=== PATIENT | male | born 1990 | race Caucasian/White ===

== ENCOUNTER 2024-08-27 11:59 | Inpatient (IN) | payer OTHER ==
[2024-08-27 12:34] VITALS: BMI 35.6
[2024-08-27] MEDS ORDERED: ACETAMINOPHEN 325 MG TABLET (FP) PO PRN (12:47)
[2024-08-27] MEDS ORDERED: MAG HYDROX/AL HYDROX/SIMETH 30 ML UNIT-DOSE CUP PO PRN (12:47)
[2024-08-27] MEDS ORDERED: POLYETHYLENE GLYCOL (HEALTHYLAX) 3350 17 GM PACKET PO PRN (12:47)
[2024-08-27] MEDS ORDERED: LOPERAMIDE HCL 2 MG CAPSULE PO PRN (12:47)
[2024-08-27] MEDS ORDERED: MAGNESIUM HYDROX 2400MG/30ML ORAL SUSPENSION 30 ML CUP PO PRN (12:47)
[2024-08-27] MEDS ORDERED: IBUPROFEN 400 MG TABLET (FP) PO PRN (12:47)
[2024-08-27] MEDS ORDERED: BENZONATATE 200 MG CAPSULE PO PRN (12:47)
[2024-08-27] MEDS ORDERED: NICOTINE POLACRILEX 2 MG LOZENGE BC PRN (12:47)
[2024-08-27] MEDS ORDERED: BENZOCAINE/MENTHOL (CHLORASEPTIC ) LOZENGE MM PRN (12:47)
[2024-08-27] MEDS ORDERED: NICOTINE POLACRILEX 2 MG GUM BUC PRN (12:47)
[2024-08-27] MEDS ORDERED: guaiFENesin 600 MG TABLET.ER (FP) PO PRN (12:47)
[2024-08-27] MEDS ORDERED: IBUPROFEN 600 MG TABLET (FP) PO PRN (12:47)
[2024-08-27] MEDS ORDERED: amLODIPine BESYLATE 5 MG TABLET (FP) ONE (13:56)
[2024-08-27] MEDS: amLODIPine BESYLATE 5 MG TABLET (FP) PO ONE ×2 (14:01→22:31)
[2024-08-27] MEDS: FLU VACCINE (FLULAVAL) PF 45 MCG/0.5 ML SYRINGE 2024-2025 IM ONE (15:19)
[2024-08-27] MEDS ORDERED: TUBERCULIN PPD 5 TU/0.1ML VIAL ID ONE (16:53)
[2024-08-27] MEDS: MELATONIN 5 MG TABLETS PO SCH (21:42)
[2024-08-27] MEDS: THIAMINE 100 MG TABLET PO SCH (21:42)
[2024-08-28] MEDS: ASPIRIN 81 MG CHEWABLE TABLETS PO SCH (10:04)
[2024-08-28] MEDS: PRENATAL VITAMINS W/ FOLIC ACID TABLET (FP) PO SCH (10:04)
[2024-08-28] MEDS: CHOLECALCIFEROL (VIT D3) 5000 UNITS (125 MCG) CAP PO SCH (10:04)
[2024-08-28 11:54] LABS: HEMATOCRIT 47.5 % (35.4-49); HEMOGLOBIN 15.8 GM/dL (11.7-16.9); MCH 31.8 pg (25.7-33.7); MCHC 33.3 g/dl (32.0-35.9); MEAN CELL VOLUME 95.4 fl (80-96); MEAN PLT VOLUME 10.3 fl (7.5-11.1); PLATELET COUNT 219 10^3/uL (134-434); RBC 4.98 M/mm3 (4.00-5.60); RDW 13.2 % (11.9-15.9); WHITE BLOOD COUNT 7.7 K/mm3 (4.0-10.0)
[2024-08-28 12:29] LABS: SYPHILIS W/ RPR CONF NON-REACTIVE (NONREACTIVE)
[2024-08-28 13:01] LABS: CHLORIDE 104 mmol/L (98-107); POTASSIUM 4.3 mmol/L (3.5-5.1); SODIUM 140 mmol/L (136-145)
[2024-08-28 13:05] LABS: ANION GAP 6 mmol/L (4-13); CALCIUM 9.3 mg/dL (8.5-10.1); CO2 30 mmol/L (21-32)
[2024-08-28 13:08] LABS: SGOT/AST 24 U/L (15-37); SGPT/ALT 35 U/L (13-61)
[2024-08-28 13:10] LABS: ALBUMIN 3.8 g/dl (3.4-5.0); BILIRUBIN,TOTAL 1.4 mg/dL (0.2-1); GLUCOSE,RANDOM 107 mg/dL (74-106); TOT PROT 6.8 g/dl (6.4-8.2)
[2024-08-28 13:11] LABS: ALK PHOS 84 U/L (45-117)
[2024-08-29] MEDS: amLODIPine BESYLATE 5 MG TABLET (FP) PO SCH (14:49)
[2024-08-30] MEDS: BACLOFEN 10 MG TABLET (FP) PO SCH (13:23)
[2024-08-30] MEDS: NALTREXONE HCL 50 MG TABLET PO SCH (13:23)
[2024-08-30] MEDS: amLODIPine BESYLATE 2.5 MG TABLET (FP) PO ONE (13:24)
[2024-08-31] MEDS: cloNIDine HCL 0.1 MG TABLET PO ONE (06:39)
[2024-08-31] MEDS: amLODIPine BESYLATE 2.5 MG TABLET (FP) PO SCH (14:38)
[2024-09-01] MEDS: amLODIPine BESYLATE 2.5 MG TABLET (FP) PO SCH (09:56)
[2024-09-05] MEDS: amLODIPine BESYLATE 10 MG TABLET (FP) PO SCH (10:23)
[2024-09-05] MEDS: hydrOXYzine PAMOATE 25 MG CAPSULE (FP) PO PRN (14:19)
[2024-09-06] MEDS: LISINOPRIL 5 MG TABLET PO ONE (13:40)
[2024-09-08] MEDS: NALTREXONE MICROSPHERES (VIVITROL) 380 MG DISP.SYRIN IM ONE (10:46)
[2024-09-09 06:49] VITALS: RESP 17; TEMP 97.1
[2024-09-09 09:16] VITALS: BP 140/77; PULSE 88
== END 2024-09-09 09:58 | disposition home or self-care (01) | DRG 772 ==
LOC: YASAS 11:59 → Y3W 14:00 → Y3N 09-06 19:32 → Y3W 09-06 19:33
PROVIDERS: ADMIT Psychiatry & Neurology Pain Medicine; ATTEND Psychiatry & Neurology Pain Medicine
PROC: HZ42ZZZ Group Counseling for Substance Abuse Treatment, Cognitive-Behavioral (ICD-10-PCS; principal; 2024-08-27)
DX: F10.20 Alcohol dependence, uncomplicated (principal); F14.20 Cocaine dependence, uncomplicated; Z72.0 Tobacco use; F32.A Depression, unspecified; I10 Essential (primary) hypertension
CPT/HCPCS: 36415; 80053; 80305; 80307; 85027; 86780; 86803; 87811; 90656; 93005; 93010; G0008; J0475; J2315

== ENCOUNTER 2025-05-22 08:57 | Inpatient (IN) | payer SELFPAY ==
[2025-05-22 09:19] VITALS: BMI 39.3
[2025-05-22] MEDS ORDERED: LOPERAMIDE HCL 2 MG CAPSULE PO PRN (09:30)
[2025-05-22] MEDS ORDERED: BISMUTH SUBSALICYLATE 262 MG/15 ML BTL PO PRN (09:30)
[2025-05-22] MEDS ORDERED: IBUPROFEN 400 MG TABLET (FP) PO PRN (09:30)
[2025-05-22] MEDS ORDERED: MAGNESIUM HYDROX 2400MG/30ML ORAL SUSPENSION 30 ML CUP PO PRN (09:30)
[2025-05-22] MEDS ORDERED: ONDANSETRON *ODT* 4 MG TABLET SL PRN (09:30)
[2025-05-22] MEDS ORDERED: BENZOCAINE/MENTHOL (CHLORASEPTIC ) LOZENGE MM PRN (09:30)
[2025-05-22] MEDS ORDERED: MAG HYDROX/AL HYDROX/SIMETH 30 ML UNIT-DOSE CUP PO PRN (09:30)
[2025-05-22] MEDS ORDERED: BENZONATATE 200 MG CAPSULE PO PRN (09:30)
[2025-05-22] MEDS ORDERED: guaiFENesin 600 MG TABLET.ER (FP) PO PRN (09:30)
[2025-05-22] MEDS ORDERED: POLYETHYLENE GLYCOL (HEALTHYLAX) 3350 17 GM PACKET PO PRN (09:30)
[2025-05-22] MEDS ORDERED: ACETAMINOPHEN 325 MG TABLET (FP) PO PRN (09:30)
[2025-05-22] MEDS ORDERED: NALOXONE (NARCAN) HCL 4 MG/0.1 ML SPRAY NS PRN (09:30)
[2025-05-22] MEDS ORDERED: PRENATAL VITAMINS W/ FOLIC ACID TABLET (FP) PO ONE (10:19)
[2025-05-22] MEDS: amLODIPine BESYLATE 5 MG TABLET (FP) PO SCH (10:21)
[2025-05-22] MEDS: PRENATAL VITAMINS W/ FOLIC ACID TABLET (FP) PO SCH (10:21)
[2025-05-22] MEDS: ASPIRIN 81 MG CHEWABLE TABLETS PO SCH (10:21)
[2025-05-22] MEDS: NALTREXONE HCL 50 MG TABLET PO ONE (10:22)
[2025-05-22] MEDS: THIAMINE 100 MG TABLET PO SCH (22:46)
[2025-05-22] MEDS: MELATONIN 5 MG TABLETS PO SCH (22:46)
[2025-05-22] MEDS: METHOCARBAMOL 500 MG TABLET PO PRN (22:46)
[2025-05-22] MEDS: hydrOXYzine PAMOATE 25 MG CAPSULE (FP) PO PRN (22:48)
[2025-05-23] MEDS: NALTREXONE HCL 50 MG TABLET PO SCH (10:47)
[2025-05-23 11:44] LABS: MCHC 32.7 g/dl (32.3-36.5); MEAN CELL VOLUME 93.6 fl (79.0-92.2); RDW 13.5 % (12.0-15.6)
[2025-05-23 11:45] LABS: MEAN PLT VOLUME 12.1 fl (9.4-12.4)
[2025-05-23 13:16] LABS: CREATININE 0.9 mg/dL (0.55-1.3); SGOT/AST 44.0 U/L (15-37); SGPT/ALT 55.0 U/L (13-61)
[2025-05-23 13:17] LABS: CO2 21.0 mmol/L (21-32); GLUCOSE,RANDOM 89.0 mg/dL (74-106)
[2025-05-23 13:19] LABS: ALK PHOS 91.0 U/L (45-117)
[2025-05-23 13:22] LABS: TOT PROT 6.6 g/dl (6.4-8.2)
[2025-05-23] MEDS: DICYCLOMINE HCL 10 MG CAPSULE PO PRN (22:45)
[2025-05-24] MEDS: IBUPROFEN 600 MG TABLET (FP) PO PRN (18:07)
[2025-05-25 05:51] VITALS: RESP 16
[2025-05-25 09:55] VITALS: BP 152/87; PULSE 73; TEMP 98
== END 2025-05-25 09:08 | disposition home or self-care (01) | DRG 774 ==
LOC: YASAS 08:57 → Y3N 09:59
PROVIDERS: ADMIT Family Medicine; ATTEND Allergy & Immunology
PROC: HZ2ZZZZ Detoxification Services for Substance Abuse Treatment (ICD-10-PCS; principal; 2025-05-22)
DX: F10.230 Alcohol dependence with withdrawal, uncomplicated (principal); F14.20 Cocaine dependence, uncomplicated
CPT/HCPCS: 36415; 80053; 80305; 80307; 85027; 86780; 93005; 93010